=== PATIENT | female | born 1990 | race Caucasian/White ===

== ENCOUNTER 2021-04-24 14:48 | Outpatient (CLI) | payer BC, SELFPAY ==
--- NOTE | 2021-04-24 15:01 | MR_ITS ---
WS: [id number] MRI HEAD WITH CONTRAST TECHNIQUE: Sagittal T1, T2 axial, T2 axial FLAIR, axial susceptibility weighted imaging, axial diffus ion weighted images, and coronal T2 images were obtained. Pre and post-T1 axial and post T1 coronal i mages. ADC and FSPGR images. CLINICAL INFORMATION: HEAD PAIN FINDINGS: No evidence of restricted diffusion to suggest acute ischemia. Ventricular system and basal cisterns are patent. No suspicious intracranial signal abnormalities. Single focus of T2 signal abnormality in the RIGHT posterior frontal subcortical white matter nonspecific but can be seen with migraine heada ches. No other suspicious intracranial signal abnormalities. Normal posterior fossa. Normal vascular flow voids at the skull base. No extra axial fluid collections. No evidence of mass or mass effect. Visualized upper cervical spine is patent. No hemosiderin on susceptibly weighted images. Normal opti c chiasm and pituitary infundibulum. Normal temporal lobes and hippocampal formations. No abnormal gadolinium enhancement. Normal cavernous sinuses and Meckel's cave. Normal dural venous s inuses. MR/MR head wo/w con [id number] IMPRESSION: 1. No evidence of restricted diffusion to suggest acute ischemia. 2. Small focus of T2 signal abnormality in the RIGHT posterior subcortical fro ntal lobe nonspecific in a patient this age but can be seen with migraine heada ches. 3. No extra-axial fluid collections. No evidence of mass or mass effect. 4. No hemosiderin on susceptibly weighted images. 5. No abnormal gadolinium enhancement. 6. Normal optic chiasm and pituitary infundibulum. 7. No other significant findings.
[2021-04-24] MEDS: gadobenate dimeglumine 20 mL vial IV (15:53)
== END 2021-04-24 14:49 | disposition home or self-care (01) ==
PROVIDERS: Visit Provider Family Medicine
DX: R51.9 Headache, unspecified (principal)
CPT/HCPCS: 70553

== ENCOUNTER 2021-10-02 11:37 | Emergency (ER) | payer BC, SELFPAY ==
[2021-10-02 11:46] VITALS: BP 122/84; PULSE 87; RESP 18; TEMP 36.8; O2SAT 100; BMI 20.3
--- NOTE | 2021-10-02 11:58 | ED_ITS ---
Documented by User: DANIELA Fuller 10/02/21 14:00 HPI - Skin/Abscess/Foreign Bdy General: Chief complaint: Skin/Abscess/Foreign Body Stated complaint: swollen lip/pain Time Seen by Provider: 10/02/21 11:54 Source: patient Mode of arrival: ambulatory Limitations: no limitations History of Present Illness: Patient is a nice 30-year-old female who presents to ED today with complaint of swelling and pain to her bottom lip that she noticed several days ago. She states it started with a small like pimple lesion that she tried to pop at home. Patient has no history of cold sores or fever blisters. She was started on Bactrim DS and has been on antibiotic therapy since Saturday morning. complaint: abscess/boil Onset (ago): day(s) Tetanus up to date: yes Location: face (lip) Severity: moderate Pain Consistency: constant Relieving factors: none Exacerbating factors: none Context: none Associated symptoms: Reports no associated symptoms; Deny chills or fever(s) Treatments prior to arrival: antibiotic Review of Systems Const: Denies: fever(s), chills, body aches, fatigue or malaise ENMT: Reports: other (lower lip swelling/abscess) Neuro: Denies: headache(s) PFS ED PFSH: Social History Smoking and tobacco status: never smoked Physical Exam Const: COMMON NORMALS: no acute distress, no limitations, healthy appearing and alert HENMT: FACE & SINUS: normal facial exam (apart from lip findings) MOUTH: Normal oral and palatal mucosa present, tongue normal and other (swelling/abscess noted to lower central lip; small pustule lesion present) TEETH & GINGIVA: Yes other (normal dentition ) THROAT: posterior oropharynx normal, tonsils normal and uvula midline Neuro: SENSORIUM/ORIENTATION: Yes alert Course Vital Signs: Vital signs: Vital Signs Temperature 98.2 F 10/02/21 12:08 Pulse Rate 87 10/02/21 12:08 Respiratory Rate 18 10/02/21 12:08 Blood Pressure 122/84 10/02/21 12:08 Pulse Oximetry 100 10/02/21 12:08 Oxygen Delivery Me thod 10/02/21 12:08 MDM - Skin/Abscess/Foreign Bdy Medicial Decision Making Lesion/lip was ultrasounded by Dr. Epstein and we did visualize small pocked of septated fluid-question how amendable to I&D this would be. Discussed opening abscess under conscious sedation vs discussing and having patient follow up with ENT and she would like to follow up at this time. I was able to contact ENT/Dr. Clark's office and they will see her at 4:00pm today for evaluation. Return to ED precautions given. Discharge Plan Discharge Patient Disposition: Home Clinical Impression: Lip abscess Condition: Stable Prescriptions: No Action sulfamethoxazole-trimethoprim [Bactrim DS] 800-160 mg tablet 1 tab PO BID amoxicillin-pot clavulanate 875-125 mg tablet 1 tab PO TID 10 Days Qty: 30 0RF Discharge Orders: Discharge ED (Routine); Ordered 10/02/21 Ordered By: Damaris Barba Referrals: Scot Clark MD [Physician] - Coding Level of Care Code ED Field Placement Director for Chg Fwd Exam Expanded Problem Focused Documented by User: Jimmie Epstein DO 10/02/21 16:33 HPI - Skin/Abscess/Foreign Bdy General: Chief complaint: Skin/Abscess/Foreign Body Stated complaint: swollen lip/pain Time Seen by Provider: 10/02/21 11:54 [facility] ED PFSH: Social History Smoking and tobacco status: never smoked Course Vital Signs: Vital signs: Vital Signs Temperature 98.2 F 10/02/21 12:08 Pulse Rate 87 10/02/21 12:08 Respiratory Rate 18 10/02/21 12:08 Blood Pressure 122/84 10/02/21 12:08 Pulse Oximetry 100 10/02/21 12:08 Oxygen Delivery Me thod 10/02/21 12:08 MDM - Skin/Abscess/Foreign Bdy Medicial Decision Making Lesion/lip was ultrasounded by Dr. Esptein and we did visualize small pocked of septated fluid-question how amendable to I&D this would be. Discussed opening abscess under conscious sedation vs discussing and having patient follow up with ENT and she would like to follow up at this time. I was able to contact ENT/Dr. Clark's office and they will see her at 4:00pm today for evaluation. Return to ED precautions given. Seen and examined patient in conjunction with Damaris Barba using ultrasound was able to identify a small abscess offered patient to use conscious sedation to allow for adequate anesthesia and to incise and drain. As a secondary option we sought out Dr. Clark's office he was able to see her. Patient was referred to Dr. Clark he seen her in's did a needle aspiration and discharge patient home we did give her prescription for hydrocodone 06/20/2024 1-2 every 4-6 hours as needed for pain and dispensed 20. Discharge Plan Discharge Patient Disposition: Home Clinical Impression: Lip abscess Condition: Stable Prescriptions: No Action sulfamethoxazole-trimethoprim [Bactrim DS] 800-160 mg tablet 1 tab PO BID amoxicillin-pot clavulanate 875-125 mg tablet 1 tab PO TID 10 Days Qty: 30 0RF Discharge Orders: Discharge ED (Routine); Ordered 10/02/21 Ordered By: Damaris Barba Referrals: Scot Clark MD [Physician] - Coding Level of Care Code ED Field Placement Director for Chg Fwd Exam Expanded Problem Focused
[2021-10-02 12:08] VITALS: BP 122/84; PULSE 87; RESP 18; TEMP 36.8; O2SAT 100
== END 2021-10-02 13:55 | disposition home or self-care (01) ==
PROVIDERS: Emergency Provider Physician Assistant
DX: K13.0 Diseases of lips (principal)
CPT/HCPCS: 99283

== ENCOUNTER 2022-03-09 14:15 | Outpatient (CLI) | payer BC, SELFPAY ==
[2022-03-09 14:38] LABS: D Dimer 0.35 ug/mIFEU (0-0.59)
[2022-03-09 14:48] LABS: Troponin T (5th) Once 6 ng/L (0-10)
== END 2022-03-09 14:16 | disposition home or self-care (01) ==
PROVIDERS: Visit Provider Nurse Practitioner Family
DX: R07.89 Other chest pain (principal)
CPT/HCPCS: 84484; 85378

== ENCOUNTER 2024-05-19 16:34 | Outpatient (CLI) | payer OTHER, SELFPAY ==
--- NOTE | 2024-05-19 16:44 | CT_ITS ---
WS: [id number] CT PELVIS NONCONTRAST HISTORY: PELVIC PAIN TECHNIQUE: Contiguous imaging is performed of the pelvis with contrast. Coronal and sagittal reformats are reviewed. All CT scans at [facility] use at least one of these dose optimization techniques: automated exposure control; mA and/or kV adjustment per patient size (includes targeted exams where dose is matched to clinical indication); or iterative reconstruction. DLP: 198.42 mGy.cm COMPARISON: Pelvic ultrasound 04/21/2024 Contrast: Omnipaque 350 100 cc IV. Rotary scoliosis to the LEFT of the lower lumbar spine. No fractures. Bilateral pars defects at L5. 2 mm anterolisthesis of L5. No destructive bone lesions. The SI joints are normal. No abnormality noted within the sacrum or coccyx. Visualized GI tract within the pelvis demonstrates moderate fecal retention. No obstructive pattern. More significant fecal retention at the rectum. Transverse measurement of the rectum is 7.1 cm. Urinary bladder is negative. Uterus is midline and normal in appearance by CT. No adnexal masses. Prominent bilateral parauterine veins. Dilated LEFT ovarian vein complex. RIGHT ovarian vein complex is also prominent but not as significantly as on the LEFT. Arcuate veins are not enhancing. CT/CT pelvis w con* [id number] IMPRESSION: 1. L5 spondylolysis with grade 1 spondylolisthesis. 2. Rotoscoliosis lower lumbar spine. 3. Dilated bilateral periuterine and ovarian veins. 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 4. Moderate fecal retention at the rectum.
[2024-05-19] MEDS: iohexol 350 mg/mL 500 mL Btl (per mL) IV (16:55)
== END 2024-05-19 16:35 | disposition home or self-care (01) ==
LOC: RAD 16:41
PROVIDERS: PCP Family Medicine; Visit Provider Family Medicine
DX: R10.2 Pelvic and perineal pain (principal); M43.06 Spondylolysis, lumbar region; M41.86 Other forms of scoliosis, lumbar region; R93.89 Abnormal findings on diagnostic imaging of other specified body structures; K59.00 Constipation, unspecified; R93.7 Abnormal findings on diagnostic imaging of other parts of musculoskeletal system
CPT/HCPCS: 72193